=== PATIENT | male | born 1990 | race American Indian/Alaskan Native ===

== ENCOUNTER 2019-10-10 12:41 | Emergency (ER) | payer SELFPAY ==
[~2019-10-10] VITALS: Ht 172.7 cm; Wt 68.0 kg
[2019-10-10] MEDS ORDERED: HYDROCODONE/APAP 10-325 MG TABLET PO ONE (13:00)
[2019-10-10] MEDS ORDERED: SULFAMETH/TRIMETH 800/160 MG TABLET PO ONE (13:00)
[2019-10-10] MEDS ORDERED: SULFAMETH/TRIMETH 800/160 MG TABLET ONE (13:03)
[2019-10-10] MEDS ORDERED: HYDROCODONE/APAP 10-325 MG TABLET ONE (13:03)
--- NOTE | 2019-10-10 13:36 | NUR ---
Patient discharged to home in stable conditon. Written and verbal after care instructions given. Patient verbalizes understanding of instructions.PT WALKS IN STEADY GAIT. PT NOT IN [employer]. PT WAS TOLD TO FOLLOW UP ON THE CELLULITIS OF LLE.
== END 2019-10-10 14:06 | disposition home or self-care (01) ==
LOC: ER 12:41
DX: L03.116 Cellulitis of left lower limb (principal)
CPT/HCPCS: A4663